=== PATIENT | female | born 1970 | race Two or more races ===

== ENCOUNTER 2016-10-12 18:21 | Observation (INO) | payer OTHER ==
--- NOTE | ~2016-10-12 | EKG ---
PATIENT: JUSTIN MONTERO UNIT #: [id number] Ventricular Rate: 69 BPM Atrial Rate: 69 BPM P-R Interval: 154 ms QRS Duration: 82 ms Q-T Interval: 370 ms QTC Calculation(Bezet): 396 ms P Highland: 57 degrees Calculated R Highland: 53 degrees Calculated T Highland: 15 degrees Diagnosis Line: Normal sinus rhythm Diagnosis Line: Normal ECG Diagnosis Line: No previous ECGs available Diagnosis Line: Confirmed by ROMIE PEREZ MD ([id number]) on 10/13/2016 Diagnosis Line: 8:07:19 PM INTERPRETING MD: CHRIS BARROSO
--- NOTE | ~2016-10-12 | TH ---
Unit #: [id number] #: [id number] Patient: JUSTIN MONTERO [id number] [address] [address] [id number] I MR#: [id number] NAME: JUSTIN MONTERO : 1970 SEX: F STUDY DATE/TIME: UNIT: C3A U ROOM: [facility] STUDY DESCRIPTION: Nuclear Study Attending Physician: Kailey Branham M.D. Primary Care Physician: No Primary Care Physician CARDIOLOGY REPORT EXAM Nuclear Study Please see Stress Test impression for results of Nuclear Study. Dictated by... Sanjana Nance/frankie TD: 10/15/2016 14:12 JOB #: [id number] CARDIOLOGY REPORT Page 1 of 1 X Antonio Wang MD CARDIOLOGY REPORT
--- NOTE | ~2016-10-12 | ST ---
Unit #: [id number] #: [id number] Patient: JUSTIN MONTERO [id number] [address] [place], [place] [address] [id number] I MR#: [id number] NAME: JUSTIN MONTERO : 1970 SEX: F STUDY DATE/TIME: UNIT: C3A PCU ROOM: 335 STUDY DESCRIPTION: Stress Test Attending Physician: Kailey Branham M.D. Primary Care Physician: No Primary Care Physician CARDIOLOGY REPORT EXAM Stress Nuclear and ECG SUMMARY The patient received Lexiscan intravenously while at rest. Communication was done through automotive mechanic phone. Technetium 99 Cardiolite 11.68 and 28.3 mCi was injected at rest and stress respectively. Appropriate views were obtained. The patient's ECG demonstrated APCs and VPCs. There were no acute ST changes during this study. 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 These contrasts are not understood. Heart rate increased from 59 to 115, and blood pressure decreased 159/85 to 144/86. There were no significant dysrhythmias, or ST changes as noted above. Perfusion images demonstrate no significant patient motion, either at rest or stress. There is no significant lung uptake, LV or RV enlargement. There is breast attenuation artifact. Gaited perfusion wall motion analysis demonstrates normal wall motion throughout the myocardium with end diastolic volume 77 mL, ejection fraction 56%. Summed stress score is 3, summed difference score is 2. Changes involve primarily border detection at the base. Perfusion images demonstrate apical thinning with normal perfusion throughout the myocardium. IMPRESSION 1. Myocardial perfusion scan and stress ECG showed no evidence of ischemia. 2. Normal wall motion. 3. Normal LV size, and normal ejection fraction. Dictated by... Antonio Wang M.D. SYDNI/frankie TD: 10/15/2016 14:04 Unit #: [id number] #: [id number] Patient: JUSTIN MONTERO JOB #: [id number] CARDIOLOGY REPORT Page 1 of 1 X Antonio Wang MD CARDIOLOGY REPORT
--- NOTE | ~2016-10-12 | CT2 ---
[facility] A Service of [facility] RADIOLOGY TEXT RESULTS PATIENT: JUSTIN MONTERO LOCATION: CEDOF 86317-57 : [birth year] UNIT #: [id number] AGE: [address]: Snow Mercado MD SEX: F ORDER DR: [id number] [facility] [address] [facility]. [place], [place] [address] [id number] I MR#: [id number] Acc #: [id number] NAME: JUSTIN MONTERO : 1970 SEX: F STUDY DATE/TIME: 10/13/2016 0:02 UNIT: CEDOF ROOM: 33439 STUDY DESCRIPTION: CT Abd and Pelv W Cont Attending Physician: Snow Mercado M.D. Ordering Physician: Eric Martin D.O. Primary Care Physician: No Primary Care Physician MEDICAL IMAGING REPORT This report is preliminary unless electronic signature is present EXAM CT abdomen and pelvis with contrast HISTORY Weakness, left-sided chest pain onset today. TECHNIQUE Axial images performed through the abdomen and pelvis following IV contrast. Multiplanar reconstructed images reviewed at a workstation. This CT exam was performed with one or more of the following radiation dose reduction techniques: automatic control, adjustment of mA and/or kV according to patient size, and iterative reconstruction. FINDINGS ABDOMEN: Lung bases unremarkable. Liver spleen gallbladder pancreas kidneys and adrenal glands unremarkable. There is subtle density in the gallbladder neck could represent a small gallstone but no findings to suggest a cholecystitis. There is a subtle irregularity along the posterior margin of the left kidney which may represent areas of scarring possibly from previous infection. The visualized GI tract to include the appendix normal. Bladder uterus and adnexa appear normal. Osseous structures unremarkable. Mild obesity. Incidentally noted is a intramuscular lipoma within the lower aspect of the left latissimus dorsi muscle. No atypical features identified. IMPRESSION 1. No acute abnormality of the chest abdomen or pelvis to account for the patient's clinical presentation of weakness. 2. Subtle density in the region of the gallbladder neck could represent a small gallstone but no CT evidence of acute cholecystitis. 3. Minimal cortical scarring posterior aspect left kidney may represent the sequela of previous pyelonephritis. [facility] [email or web address] A Service of [facility] RADIOLOGY TEXT RESULTS PATIENT: JUSTIN MONTERO LOCATION: [facility] [address]473-06 : [birth year] UNIT #: [id number] AGE: [address]: Snow Mercado MD SEX: F ORDER DR: Dictated by... Alayna Harry M.D. THIS IS AN ELECTRONICALLY VERIFIED REPORT Alayna Harry M.D. at 10/13/2016 5:18 AM ALEXEI/xavi TD: 10/13/2016 03:40 JOB #: [id number] MEDICAL IMAGING REPORT Page 1 of 1 COPY
--- NOTE | ~2016-10-12 | HP ---
Unit #: [id number] #: [id number] Patient: JUSTIN MONTERO [id number] [facility]. [place], [place] [address] [id number] I MR#: [id number] NAME: JUSTIN MONTERO ROOM: 88673 Age: 46 Sex: F Admission Date: 10/13/2016 : 1970 Attending Physician: Snow Mercado M.D. Primary Care Physician: No Primary Care Physician HISTORY AND PHYSICAL CHIEF COMPLAINT Palpitations, weakness, abdominal pain. HISTORY This pleasant 46-year-old female from [facility], is admitted for weakness. 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 Has been experiencing increasing abdominal discomfort, mainly mid to lower abdomen suprapubic region. Over the past four days, noticed increasing palpitations, weakness. Also has been experiencing a generalized headache. Presented to this emergency department late last evening with initial blood pressure of 171/73, but her blood pressure has normalized and currently is 130/81 without intervention. Workup in the ER including CBC, chemistries, cardiac markers and urinalysis are fairly unremarkable. TSH was normal. A D-dimer was elevated but a CTA performed of the chest was negative. CT scan of the abdomen and pelvis show a possible gallstone only. PAST MEDICAL HISTORY Recent endoscopy at [facility] 09/23/2016. ALLERGIES None. HOME MEDICATIONS None. FAMILY HISTORY Negative for heart disease. SOCIAL HISTORY The patient lives with her and children. She is originally from [facility]. She is a lifelong nonsmoker, does not drink alcohol. REVIEW OF SYSTEMS Difficult to obtain due to language barrier. PHYSICAL EXAMINATION GENERAL APPEARANCE: Very pleasant 46-year-old female, currently in no acute distress. VITAL SIGNS: Temperature 98.6, pulse 86, respirations 16, blood pressure 171/73 which has improved to 130/81 on its own. O2 saturation 100% on room air. Unit #: [id number] #: [id number] Patient: JUSTIN MONTERO HEENT: Eyes PERRLA. Extraocular muscles are intact. Pharynx is benign. NECK: Supple without adenopathy or thyromegaly. CHEST: Clear. CARDIAC: Normal S1 and S2 without S3, S4 or murmur. ABDOMEN: Bowel sounds are present. Mild vague tenderness in the mid left and right along the suprapubic region without rebound, guarding. No hepatosplenomegaly or masses. EXTREMITIES: Without clubbing, cyanosis or edema. Pedal pulses are present. NEUROLOGIC: The patient is awake, alert, oriented. Cranial nerves are intact. Equal strength throughout. DIAGNOSTIC STUDIES LABORATORY: Hematocrit 36.2. MCV is 71, normal white count and platelet count. Negative cardiac markers. D-dimer elevated. SMA-12 - CO2 was 20. Normal lactic acid level, lipase, TSH. Beta hcg point of care was negative. IMAGING: Chest x-ray - no acute disease. CTA of the chest was negative. CT scan of the pelvis and abdomen show a possible gallstone and some scarring of the left kidney. CARDIOVASCULAR: EKG - normal sinus rhythm, rate 69, normal appearing. ASSESSMENT 1. Complaints of palpitations and weakness. 2. Generalized abdominal discomfort. The patient had a reportedly negative recent endoscopy at [facility]. PLANS 1. Stress test and Holter monitor. 2. Obtain endoscopy results. 3. IV fluids and supportive treatment. 4. Gallbladder ultrasound. Dictated by Sanjana Escobedo/frankie TD: 10/13/2016 05:25 JOB #: [id number] Unit #: [id number] #: [id number] Patient: JUSTIN MONTERO HISTORY AND PHYSICAL Page 1 of 1 X Snow Mercado MD X HISTORY AND PHYSICAL
--- NOTE | ~2016-10-12 | US67 ---
[facility] A Service of [facility] RADIOLOGY TEXT RESULTS PATIENT: JUSTIN MONTERO LOCATION: C3A PC 335- : [birth year] UNIT #: [id number] AGE: [address]: Kailey Branham MD SEX: F ORDER DR: [id number] [facility] [address] [facility]. [place], [place] [address] [id number] I MR#: [id number] Acc #: [id number] NAME: JUSTIN MONTERO : 1970 SEX: F STUDY DATE/TIME: 10/13/2016 10:11 [facility] 48300 STUDY DESCRIPTION: US Gallbladder Attending Physician: Kailey Branham M.D. Ordering Physician: Snow Mercado M.D. Primary Care Physician: No Primary Care Physician MEDICAL IMAGING REPORT This report is preliminary unless electronic signature is present EXAM Right upper quadrant abdominal ultrasound. INDICATIONS Right upper quadrant abdominal pain after endoscopy on 09/23/2016, worsening over last 4 days. PROCEDURE Vanegas-scale and Doppler imaging, right upper quadrant of the abdomen. COMPARISON CT from earlier on the same day. FINDINGS Visualized portions of the pancreas are unremarkable. Liver measures 14 cm. No liver mass on submitted images. Common duct measures 3 mm. Right kidney measures 10.9 cm and is normal. There is a second submitted image of the common duct that measures up to 6 mm. No sonographic evidence for cholelithiasis. IMPRESSION 1. Unremarkable appearance of the gallbladder. 2. Common duct measures up to 6 mm, which is mildly prominent for the patient's age. Correlate with laboratory values. If further evaluation is desired clinically, MRCP or ERCP may be helpful. Dictated by... Familia Ga M.D. THIS IS AN ELECTRONICALLY VERIFIED REPORT Familia Ga M.D. at 10/17/2016 7:14 AM [facility] A Service [facility] RADIOLOGY TEXT RESULTS PATIENT: JUSTIN MONTERO LOCATION: C3A 335 : [birth year] UNIT #: [id number] AGE: [address]: Kailey Branham MD SEX: F ORDER DR: MICHEL/maría elena TD: 10/13/2016 12:20 JOB #: [id number] MEDICAL IMAGING REPORT Page 1 of 1 COPY
--- NOTE | ~2016-10-12 | CR63 ---
[facility] A Service of [facility] RADIOLOGY TEXT RESULTS PATIENT: JUSTIN MONTERO LOCATION: A 335-01 : [birth year] UNIT #: [id number] AGE: [address]: Kailey Branham MD SEX: F ORDER DR: [id number] [facility] [address] [place], [place] [address] [id number] E MR#: [id number] Acc #: [id number] NAME: JUSTIN MONTERO : 1970 SEX: F STUDY DATE/TIME: 10/12/2016 21:06 UNIT: [facility] ROOM: STUDY DESCRIPTION: CR Chest 2 View Attending Physician: Eric Martin D.O. Ordering Physician: Yesy Meraz M.D. Primary Care Physician: No Primary Care Physician MEDICAL IMAGING REPORT This report is preliminary unless electronic signature is present EXAM 2-view chest 10/12/2016 HISTORY 46-year-old female with shortness of air and weakness beginning today. COMPARISON Chest 06/19/2015 FINDINGS 2 views of the chest demonstrate clear lungs. No pleural effusion or pneumothorax. Mild cardiomegaly. Mediastinum and pulmonary vasculature are unremarkable. IMPRESSION Mild cardiomegaly. No other acute chest findings Dictated by... Matthew Keenan M.D. THIS IS AN ELECTRONICALLY VERIFIED REPORT Matthew Keenan M.D. at 10/16/2016 7:49 AM ISIDRA/xavi TD: 10/13/2016 02:28 JOB #: [id number] MEDICAL IMAGING REPORT Page 1 of 1 COPY
--- NOTE | ~2016-10-12 | CO ---
Unit #: [id number] #: [id number] Patient: JUSTIN MONTERO [id number] [address] [place], [place] [address] [id number] I MR#: [id number] NAME: JUSTIN MONTERO ROOM: 06786 Age: 46 Sex: F Admission Date: 10/13/2016 : 1970 Attending Physician: Kailey Branham M.D. Primary Care Physician: No Primary Care Physician CONSULTATION REPORT REASON FOR CONSULTATION Chest pain and palpitations. HISTORY OF PRESENT ILLNESS The patient is a 46-year-old female from [facility] [address]. 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 She states that she has never had a myocardial infarction, cardiac catheterization or a stress test before. I interviewed the patient via park interpreter phone and the park interpreter's number was [phone]. The patient's recent medical history was that she recently underwent an endoscopy at the [facility] on September 23, 2016, for abdominal discomfort. Results of this test are unknown. The patient states that the for the past four days that she has been feeling increasing palpitations and weakness. She states that she will feel her heart racing at rest and with activity. She also does describe that she has been having some intermittent chest pain that is at rest and with activity. The pain is mid sternal, lasts only a few seconds and does not radiate. She does endorse that two nights ago she woke up with shortness of breath and diaphoresis. She did not have chest pain at that time. The patient presented to the emergency department and was found initially to have a blood pressure of 171/73. Workup in the ER including CBC, chemistry, cardiac markers and urinalysis were fairly unremarkable. Her TSH was normal. Her D-dimer was elevated but a CTA was performed and CT scan of her chest was negative. CT scan of her abdomen and pelvis showed a possible gallstone only. Initially, cardiology was to read a treadmill exercise stress test. However, the patient refuses to walk on the treadmill stating she is too weak. I have discussed this case with the hospitalist caring for the patient and Cardiology has now been consulted. At this time, we will change the treadmill stress test to a Lexiscan Cardiolite stress test. PAST MEDICAL HISTORY Recent EGD at [facility] on September 23, 2016. Details unknown. SOCIAL HISTORY The patient lives with her and her children. She is originally [facility] [address]. She is a lifelong nonsmoker and does not drink alcohol. She denies any illicit drug abuse. FAMILY HISTORY The patient denies any family history of heart disease. Unit #: [id number] #: [id number] Patient: JUSTIN MONTERO ALLERGIES No known allergies. HOME MEDICATIONS None. REVIEW OF SYSTEMS A 10-point review of systems was attempted. Please see H and P for complete details. PHYSICAL EXAMINATION GENERAL APPEARANCE: The patient is awake, alert, in no acute distress. VITAL SIGNS: Temperature 98.2. Heart rate 61. Respirations 14. Blood pressure 129/50. She is oxygenating 99% on room air. HEENT: Head is atraumatic, normocephalic. Pupils are equal, round and reactive. Extraocular movements are intact. No drainage from ears or nares. NECK: Supple. Trachea is midline. No lymphadenopathy or thyromegaly is appreciated. Negative for JVD. Normal carotid upstrokes. CHEST: Lungs are clear to auscultation bilaterally. No wheezes, rales, rhonchi. CARDIOVASCULAR: Regular rate and rhythm. No murmurs, rubs or gallops are appreciated. ABDOMEN: Soft, tender, nondistended. Bowel sounds are positive in all four quadrants. SKIN: Appears to be warm, dry and intact. EXTREMITIES: No clubbing, edema or cyanosis. NEUROLOGIC: The patient appears to be alert and oriented. No focal deficits. DIAGNOSTIC STUDIES LABORATORY: Glucose 107, BUN 6, creatinine 0.9, sodium 137, potassium 4.2, chloride 111, CO2 20, AST 16, ALT 12, alkaline phosphatase 43. Troponin is less than 0.03. TSH 1.14. D-dimer 756. Point of care troponin was less than 0.05. WBC 5.3, hemoglobin 12.3, hematocrit 38.8, platelets 380. IMAGING: CT of the chest was negative for PE. CT of the abdomen showed possible gallstone. CARDIOVASCULAR: EKG shows normal sinus rhythm. ASSESSMENT 1. Palpitations. 2. Chest pain. 3. Generalized abdominal pain. 4. Recent EGD at [facility] 5. Possible (1) . 6. Lifelong nonsmoker. PLAN Cardiology has been consulted for chest pain and palpitations. At this time, we will do a Lexiscan Cardiolite stress test on the patient. Her EKGs and troponins are negative. We will check a 2D echocardiogram and lipids. The patient's TSH is within normal limits. A Holter monitor has been ordered for the patient at discharge for the hospitalist team. Again, park interpreter was used for my interview. Dr. Wang will see the Unit #: [id number] #: [id number] Patient: JUSTIN MONTERO patient. Dictated by... Quynh Avina A.P.R.N. for Antonio Wang M.D. AM/doroteo TD: 10/13/2016 12:44 JOB #: [id number] CONSULTATION REPORT Page 1 of 1 X Quynh Avina COMMERCIAL ACCOUNT OFFICER X CONSULTATION REPORT
--- NOTE | ~2016-10-12 | HM ---
Unit #: [id number] #: [id number] Patient: JUSTIN MONTERO [id number] [address] [place], [place] [address] [id number] I MR#: [id number] NAME: JUSTIN MONTERO : 1970 SEX: F STUDY DATE/TIME: 10/18/2016 UNIT: C3A PCU ROOM: [facility] STUDY DESCRIPTION: HOLTER MONITOR Attending Physician: Kailey Branham M.D. Primary Care Physician: Primary Care Physician No CARDIOLOGY REPORT EXAM Holter monitor. DATE APPLIED 10/14/16 DATE SCANNED 10/18/[address] Branham READ BY Dr. Wang INDICATION Palpitations. SUMMARY The patient was monitored for 24 hours. A total of 107,056 QRS complexes were analyzed. Less than 1% were ventricular or supraventricular ectopy beats. Average heart rate was 74 beats per minute, minimum heart rate was 54 beats per minute at 6:17 a.m., maximum heart rate 112 beats per minute at approximately 11:30 p.m. There were no pauses. SUPRAVENTRICULAR ECTOPY: 11 isolated beats, with no runs. VENTRICULAR ECTOPY: 228 isolated beats, with no runs. SYMPTOMS: None. PATIENT ACTIVATED EVENTS: None. IMPRESSION Normal Holter with no significant dysrhythmia. There were fewer ectopic beats than are typically seen. Dictated by... Antonio Wang M.D. Unit #: [id number] #: [id number] Patient: JUSTIN MONTERO SYNDI/carmen TD: 10/18/2016 20:54 JOB #: [id number] CARDIOLOGY REPORT Page 1 of 1 X Antonio Wang MD HOLTER MONITOR REPORT
--- NOTE | ~2016-10-12 | CT16 ---
[facility] A Service of [facility] RADIOLOGY TEXT RESULTS PATIENT: JUSTIN MONTERO LOCATION: CEDOF : [birth year] UNIT #: [id number] AGE: [address]: Snow Mercado MD SEX: F ORDER DR: [id number] [facility] [address] [facility]. [place], [place] [address] [id number] I MR#: [id number] Acc #: [id number] NAME: JUSTIN MONTERO : 1970 SEX: F STUDY DATE/TIME: 10/13/2016 0:02 UNIT: CEDOF ROOM: 94952 STUDY DESCRIPTION: CT Angio Chest for PE Attending Physician: Snow Mercado M.D. Ordering Physician: Eric Martin D.O. Primary Care Physician: No Primary Care Physician MEDICAL IMAGING REPORT This report is preliminary unless electronic signature is present EXAM CT chest PE protocol. HISTORY Weakness, left-sided chest pain onset today TECHNIQUE Axial images performed through the chest following IV contrast. Sagittal and sagittal and coronal 3-D reconstructed images reviewed at a workstation. This CT exam was performed with one or more of the following radiation dose reduction techniques: automatic control, adjustment of mA and/or kV according to patient size, and iterative reconstruction. FINDINGS Pulmonary parenchyma unremarkable except for mild bronchovascular crowding. No infiltrates or effusions. No pulmonary embolus. Heart size within normal limits. No adenopathy. Upper abdomen unremarkable except for a possible cortical scarring left kidney. Osseous structures and thoracic inlet unremarkable. Mild obesity. IMPRESSION No acute intrathoracic abnormality identified. Dictated by... Alayna Harry M.D. THIS IS AN ELECTRONICALLY VERIFIED REPORT Alayna Harry M.D. at 10/13/2016 5:18 AM URIELS/kyreer TD: 10/13/2016 03:36 JOB #: [id number] [facility] A Service [facility] RADIOLOGY TEXT RESULTS PATIENT: JUSTIN MONTERO LOCATION: CEDOF : [birth year] UNIT #: [id number] AGE: [address]: Snow Mercado MD SEX: F ORDER DR: MEDICAL IMAGING REPORT Page 1 of 1 COPY
[2016-10-12 19:49] LABS: BASOPHIL% 0.6 % (0-2.5); EOSINOPHIL# 0.4 X10e3 (0-0.7); EOSINOPHIL% 4.6 % (0.0-7.0); HEMATOCRIT 36.2 % (35.0-45.0); HEMOGLOBIN 11.7 gm/dL (12.0-16.0); LYMPHOCYTE# 2.9 X10e3 (1.0-3.5); LYMPHOCYTE% 37.4 % (17.0-45.0); MEAN CORPUSCULAR HEMOGLOBIN 22.9 PG (28-34); MEAN CORPUSCULAR HGB CONC 32.2 g/dL (30-36); MEAN PLATELET VOLUME 8.3 FL (6.5-11.5); MONOCYTE# 0.5 X10e3 (0-1.0); MONOCYTE% 6.5 % (3.0-12.0); NEUTROPHIL% 50.9 % (40-75); PLATELET COUNT 410 X10e3 (140-420); RED CELL DISTRIBUTION WIDTH 17.7 % (11.0-15.5); WHITE BLOOD COUNT 7.8 X10e3 (4.0-10.5)
[2016-10-12 19:52] LABS: DIFF IND NO
[2016-10-12 20:09] LABS: BILIRUBIN,TOTAL 0.6 mg/dL (0.2-2.0); CALCIUM SERUM 9.1 mg/dL (8.4-10.2); CREATININE SERUM 0.9 mg/dL (0.6-1.4); GLOM FILT RATE Estimated 76.7 mL/min (>60); POTASSIUM 4.2 mmol/L (3.5-5.1)
[2016-10-12 21:27] LABS: POC - CKMB <1.0 ng/mL (0.0-7.9); POC - TROPONIN <0.05 ng/mL (<=0.05)
[2016-10-12 21:36] LABS: URINE SOURCE CLEAN CATCH
[2016-10-12 21:41] LABS: URINE APPEARANCE CLEAR; URINE BILIRUBIN NEG (NEG); URINE BLOOD TRACE (NEG); URINE COLOR YELLOW; URINE GLUCOSE NEG (NEG); URINE KETONE NEG (NEG); URINE LEUKOCYTE ESTERASE NEG (NEG); URINE NITRATE NEG (NEG); URINE PH 6.5 (5-8); URINE PROTEIN NEG (NEG); URINE UROBILINOGEN 0.2 MG/DL (NEG)
[2016-10-12 21:44] LABS: URBCS1 AUWI 0-2 /[HPF] (0-2); URINE BACTERIA AUWI NEG (NEGATIVE); URINE SQUAMOUS EPITHELIAL CELL OCC /[HPF]; UWBCS1 AUWI 0-2 (0-5)
[2016-10-12 21:45] LABS: CULTURE INDICATED? NO
[2016-10-12 21:50] LABS: AMPHETAMINE NEG (NEG); BARBITURATES NEG (NEG); BENZODIAZEPINES NEG (NEG); COCAINE NEG (NEG); MARIJUANA NEG (NEG); OPIATES NEG (NEG); TRICYCLIC ANTIDEPRESSANTS NEG (NEG); U METHADONE NEG (NEG)
[2016-10-13 00:05] LABS: POC - CKMB <1.0 ng/mL (0.0-7.9); POC - TROPONIN <0.05 ng/mL (<=0.05)
[2016-10-13 10:54] LABS: BASOPHIL# 0.1 X10e3 (0-0.3); BASOPHIL% 1.3 % (0-2.5); EOSINOPHIL# 0.2 X10e3 (0-0.7); EOSINOPHIL% 4.6 % (0.0-7.0); HEMATOCRIT 38.8 % (35.0-45.0); HEMOGLOBIN 12.3 gm/dL (12.0-16.0); LYMPHOCYTE# 2.1 X10e3 (1.0-3.5); LYMPHOCYTE% 38.6 % (17.0-45.0); MEAN CELL VOLUME 71.1 FL (83-96); MEAN CORPUSCULAR HEMOGLOBIN 22.6 PG (28-34); MEAN CORPUSCULAR HGB CONC 31.8 g/dL (30-36); MONOCYTE# 0.4 X10e3 (0-1.0); MONOCYTE% 6.8 % (3.0-12.0); NEUTROPHIL# 2.6 X10e3 (1.5-7.1); NEUTROPHIL% 48.7 % (40-75); PLATELET COUNT 380 X10e3 (140-420); RED BLOOD COUNT 5.46 X10e (3.90-5.30); RED CELL DISTRIBUTION WIDTH 17.9 % (11.0-15.5); WHITE BLOOD COUNT 5.3 X10e3 (4.0-10.5)
[2016-10-13 10:55] LABS: DIFF IND NO
[2016-10-13 11:18] LABS: BUN/CREATININE RATIO 6.66; CALCIUM SERUM 8.7 mg/dL (8.4-10.2); CREATININE SERUM 0.9 mg/dL (0.6-1.4); GLOM FILT RATE Estimated 76.7 mL/min (>60); POTASSIUM 4.2 mmol/L (3.5-5.1)
[2016-10-13 11:46] LABS: %MB 0.8 % (0.0-4.0); MB 0.8 ng/ml
[2016-10-13] MEDS ORDERED: NO MEDICATIONS (18:40)
[2016-10-13 20:10] LABS: CHOLESTEROL 216 mg/dL (0-200); HDL CHOLESTEROL 43 mg/dL (35-95); LDL/HDL RATIO 4 RATIO (0-4); TRIGLYCERIDES 66 mg/dL (10-160)
[2016-10-13 20:11] LABS: LDL CHOLESTEROL 160 mg/dL (-130)
[2016-10-14 05:24] LABS: HEMATOCRIT 38.6 % (35.0-45.0); HEMOGLOBIN 11.7 gm/dL (12.0-16.0); MEAN CELL VOLUME 72.7 FL (83-96); MEAN CORPUSCULAR HEMOGLOBIN 22.1 PG (28-34); MEAN CORPUSCULAR HGB CONC 30.4 g/dL (30-36); RED BLOOD COUNT 5.31 X10e (3.90-5.30); RED CELL DISTRIBUTION WIDTH 18.4 % (11.0-15.5); WHITE BLOOD COUNT 6.5 X10e3 (4.0-10.5)
[2016-10-14 06:48] LABS: ALBUMIN SERUM 3.4 g/dL (3.5-5.0); BILIRUBIN,TOTAL 0.6 mg/dL (0.2-2.0); CALCIUM SERUM 8.5 mg/dL (8.4-10.2); CREATININE SERUM 0.9 mg/dL (0.6-1.4); GLOM FILT RATE Estimated 76.7 mL/min (>60); POTASSIUM 4.6 mmol/L (3.5-5.1); PROTEIN TOTAL SERUM 5.7 g/dL (6.0-8.3)
[2016-10-15 09:33] LABS: HEMATOCRIT 37.3 % (35.0-45.0); HEMOGLOBIN 11.8 gm/dL (12.0-16.0); MEAN CELL VOLUME 71.5 FL (83-96); MEAN CORPUSCULAR HEMOGLOBIN 22.7 PG (28-34); MEAN CORPUSCULAR HGB CONC 31.7 g/dL (30-36); MEAN PLATELET VOLUME 8.3 FL (6.5-11.5); RED BLOOD COUNT 5.21 X10e (3.90-5.30); WHITE BLOOD COUNT 6.7 X10e3 (4.0-10.5)
[2016-10-15 09:59] LABS: ALBUMIN SERUM 3.7 g/dL (3.5-5.0); BILIRUBIN,TOTAL 0.6 mg/dL (0.2-2.0); CALCIUM SERUM 8.6 mg/dL (8.4-10.2); GLOM FILT RATE Estimated 67.5 mL/min (>60); POTASSIUM 4.3 mmol/L (3.5-5.1); PROTEIN TOTAL SERUM 6.7 g/dL (6.0-8.3)
[2016-10-15] MEDS ORDERED: ZESTRIL5 MG PO (16:19)
== END 2016-10-15 17:44 | disposition home or self-care (01) ==
LOC: CED 18:21 → CEDOF 10-13 03:20 → CED 10-13 03:20 → CEDOF 10-13 06:35 → C3A PCU 10-13 18:04
PROVIDERS: Emergency Medicine; Family Medicine; Internal Medicine; Nurse Practitioner
DX: R00.2 Palpitations (principal); R53.1 Weakness; R07.89 Other chest pain; R10.84 Generalized abdominal pain; I08.8 Other rheumatic multiple valve diseases
CPT/HCPCS: 36415; 71020; 71275; 74177; 76705; 78452; 80048; 80053; 80061; 80307; 81003; 82550; 82553; 82607; 83690; 84443; 84484; 84703; 85025; 85027; 85379; 93005; 93017; 93225; 93226; 93306; 97116; 97161; 97165; 97530; 97535; 99285; A9500; G0378; J2785; Q9967